=== PATIENT | female | born 1995 | race Caucasian/White ===

== ENCOUNTER 2018-05-05 00:48 | Emergency (ER) | payer OTHER ==
[2018-05-05 00:54] VITALS: BMI 18.9
[2018-05-05 00:56] VITALS: RESP 16; O2SAT 100
[2018-05-05] MEDS ORDERED: Sodium Chloride 0.9% 1,000 ML IV STA (02:14)
--- NOTE | 2018-05-05 02:34 | ED PDOC ---
HPI: Allergic Reaction Time Seen by Provider: 05/05/18 01:37 Chief Complaint (Nursing): Allergic Reaction Chief Complaint (Provider): Chest Pain History Per: Patient History/Exam Limitations: no limitations Onset/Duration Of Symptoms: Hrs (x2) Additional Complaint(s): 23 y/o female with istory of migraines presents to the ED for evaluation of chest pain with associated palpitations and shortness of breath, onset x2 hours prior to arrival. Patient reports she took Sumatriptanand within an hour was feeling stiffness in her chest with palpitations and shortness of breath. Patient reports she feels better at this time but has residual symptoms. She has no headaches currently but is nauseous. She reports she has taken Sumatriptanbefore with no side effects. Past Medical History Reviewed: Historical Data, Nursing Documentation, Vital Signs Vital Signs: Last Vital Signs Temp 98.1 F 05/05/18 00:54 Pulse 62 05/05/18 00:54 Resp 16 05/05/18 00:54 BP 114/76 05/05/18 00:54 Pulse Ox 100 05/05/18 00:54 - Medical History PMH: Migraine - Surgical History Surgical History: No Surg Hx - Family History Family History: States: Unknown Family Hx - Social History Current smoker - smoking cessation education provided: No Alcohol: None Drugs: Denies - Immunization History Hx Tetanus Toxoid Vaccination: No Hx Influenza Vaccination: No Hx Pneumococcal Vaccination: No - Home Medications Home Medications: Ambulatory Orders Medication Instructions Recorded Naproxen [Naprosyn] 1 tab PO BID PRN #20 tab 01/17/17 - Allergies Allergies/Adverse Reactions: Allergies Allergy/AdvReac Type Severity Reaction Status Date / Time No Known Allergies Allergy Verified 03/21/17 14:33 Review of Systems ROS Statement: Except As Marked, All Systems Reviewed And Found Negative Cardiovascular: Positive for: Chest Pain, Palpitations Respiratory: Positive for: Shortness of Breath Physical Exam - Reviewed Nursing Documentation Reviewed: Yes Vital Signs Reviewed: Yes - Physical Exam Appears: Positive for: Well, Non-toxic, No Acute Distress Head Exam: Positive for: ATRAUMATIC, NORMOCEPHALIC Skin: Positive for: Normal Color, Warm, DRY Eye Exam: Positive for: EOMI, Normal appearance, PERRL Neck: Positive for: Normal, Painless ROM, Supple Cardiovascular/Chest: Positive for: Regular Rate, Rhythm. Negative for: Murmur Respiratory: Positive for: Normal Breath Sounds. Negative for: Respiratory Distress Gastrointestinal/Abdominal: Positive for: Normal Exam, Soft. Negative for: Tenderness Extremity: Positive for: Normal ROM. Negative for: Pedal Edema, Deformity Neurologic/Psych: Positive for: Alert, Oriented. Negative for: Motor/Sensory Deficits - Laboratory Results Result Diagrams: 05/05/18 02:58 05/05/18 03:23 - ECG O2 Sat by Pulse Oximetry: 100 (RA) Pulse Ox Interpretation: Normal Disposition - Clinical Impression Clinical Impression: Adverse drug reaction - Patient ED Disposition Is Patient to be Admitted: No - Disposition Disposition: Routine/Home Disposition Time: 04:02 Condition: STABLE Additional Instructions: [facility], thank you for letting us take care of you today. Your provider was Raymond Mathew MD and you were treated for SIDE EFFECT FROM MEDS. The emergency medical care you received today was directed at your acute symptoms. If you were prescribed any medication, please fill it and take as directed. It may take several days for your symptoms to resolve. Return to the Emergency Department if your symptoms worsen, do not improve, or if you have any other problems. Please contact your doctor or call one of the physicians/clinics you have been referred to that are listed on the Patient Visit Information form that is included in your discharge packet. Bring any paperwork you were given at discharge with you along with any medications you are taking to your follow up visit. Our treatment cannot replace ongoing medical care by a primary care provider outside of the emergency department. Thank you for allowing the [facility] team to be part of your care today. If you had an X-Ray or CT scan: A Radiologist will review the ED reading if any change in treatment is needed we will contact you. If you had a blood, urine, or wound culture: It will take several days for the results, if any change in treatment is needed we will contact you. If you had an STI test: It will take 48 hours for the results. Please call after 1 week if you have not heard back. Instructions: Side Effects From Medicines, Adverse Drug Reactions, Adult Forms: [employer] ([facility]), [facility] ED School/Work Excuse Medical Decision Making Medical Decision Making: Time: :14 Impression: 23 y/o female with adverse reaction to Sumotriptan Initial Plan: * CMP * Urine preg * ED Urine * CBC w/ diff * Flexeril * IV Fluids * Reglan 04:02 Patient reports marked improvement in symptoms. She is stable for discharge. Patient will follow up with Dr. Gilbert, her neurologist. Diagnosis is adverse reaction to Sumotriptan. Scribe Attestation: Documented by Zander Holden, acting as a scribe for Raymond Mathew MD. Provider Scribe Attestation: All medical record entries made by the Scribe were at my direction and personally dictated by me. I have reviewed the chart and agree that the record accurately reflects my personal performance of the history, physical exam, medical decision making, and the department course for this patient. I have also personally directed, reviewed, and agree with the discharge instructions and disposition.
[2018-05-05 03:17] LABS: BASO % 0.6 % (0.0-2.0); EOS % 0.7 % (0.0-4.0); LYMPH # 2.4 K/uL (1.0-4.3); LYMPH % 39.4 % (20.0-40.0); MEAN CELL VOLUME 88.8 fl (81.0-99.0); MEAN CORPUSCULAR HEMOGLOBIN 29.1 pg (27.0-31.0); MEAN CORPUSCULAR HGB CONC 32.8 g/dL (33.0-37.0); MEAN PLATELET VOLUME 10.3 fl (7.2-11.7); MONO # 0.4 K/uL (0.0-0.8); NEUT # 3.2 K/uL (1.8-7.0); NEUT % 52.3 % (50.0-75.0); NRBC % 0.2 % (0.0-0.0); RBC 4.12 Mil/uL (3.80-5.20); RED CELL DISTRIBUTION WIDTH 13.2 % (11.5-14.5); WHITE BLOOD COUNT 6.2 K/uL (4.8-10.8)
[2018-05-05 03:57] LABS: BLOOD UREA NITROGEN 10 mg/dl (7-17); GFR NON-AFRICAN AMERICAN > 60
[2018-05-05 03:58] LABS: ALB/GLOB RATIO 1.4 (1.0-2.1); ALBUMIN 4.5 g/dL (3.5-5.0); ALT/SGPT 25 U/L (9-52); AST/SGOT 22 U/L (14-36); CALCIUM 9.1 mg/dL (8.4-10.2)
[2018-05-05 03:59] VITALS: BP 100/63; PULSE 61; TEMP 97.1
== END 2018-05-05 04:00 | disposition home or self-care (01) ==
LOC: H.ER 00:48
DX: R07.89 Other chest pain (principal); T88.7XXA Unspecified adverse effect of drug or medicament, initial encounter
CPT/HCPCS: 80053; 81025; 85025; 96374; 99284; J2765; J7030